=== PATIENT | male | born 1975 | race Caucasian/White ===

== ENCOUNTER 2017-01-13 13:02 | Observation (INO) | payer OTHER ==
[~2017-01-13] VITALS: Ht 188 cm; Wt 115.0 kg
[~2017-01-13 13:02] MED LIST: ADDERALL15 MG PO; AUGMENTIN25 MG/ML PO; COUMADIN,JANTOV10 MG PO; NEURONTIN600 MG PO; NEURONTIN800 MG PO; REMERON30 M2 PO; REMERON30 MG PO
[2017-01-13] MEDS ORDERED: WARFARIN SODIUM10 MG PO (13:25)
[2017-01-13] MEDS ORDERED: GABAPENTIN800 MG PO (13:27)
[2017-01-13 13:56] LABS: HEMATOCRIT 44.7 % (38.0-50.0); MCH 31.2 PG (29.0-34.0); MCHC 33.3 G/DL (30.0-36.0); MCV 93.7 FL (86-99); MEAN PLAT.VOLUME 9.7 uM^3 (9.0-12.4); PLATELET COUNT 246 K/uL (156-360); RBC DIS.WIDTH-CV 13.1 % (11.8-14.6); RBC DIS.WIDTH-SD 45.3 % (39-53); RED BLOOD COUNT 4.77 M/uL (4.00-5.50); WHITE BLOOD COUNT 9.2 K/uL (4.1-10.2)
[2017-01-13 14:08] LABS: D-DIMER ELISA 0.21 mg/L FEU (< 0.57); INTER. NORMALIZED RATIO 3.6; PROTHROMBIN TIME 37.7 (9.2-11.2); PTT 41.5 (25-32)
[2017-01-13 14:12] LABS: CHLORIDE 109 mEq/L (99-109); POTASSIUM 4.6 mEq/L (3.7-5.4); SODIUM 139 mEq/L (136-147)
[2017-01-13 14:14] LABS: GLUCOSE 93 mg/dL (70-99)
[2017-01-13 14:16] LABS: ANION GAP 9 MEQ/L (2-14); TOTAL BILIRUBIN 0.3 mg/dL (0.0-1.0)
[2017-01-13 14:18] LABS: ALKALINE PHOSPHATASE 81 IU/L (3-129); GFR ESTIMATE (CALCULATED) > 59 mL/min/
[2017-01-13 14:19] LABS: UREA NITROGEN (BUN) 17 mg/dL (9-23)
[2017-01-13] MEDS ORDERED: PRISTIQ50 MG PO (18:42)
[2017-01-13] MEDS ORDERED: WARFARIN SODIU7.5 MG PO (18:42)
[2017-01-13] MEDS ORDERED: NUCYNTA50 MG PO (18:43)
[2017-01-13] MEDS ORDERED: QUETIAPINE FUM100 MG PO (18:43)
[2017-01-13 20:19] VITALS: BP 126/84
[2017-01-13 23:17] VITALS: BP 128/81
[2017-01-13 23:50] LABS: METH RESISTANT S AUREUS PCR NEGATIVE (NEGATIVE)
[2017-01-13 23:53] LABS: PROBE CHECK PASS; SPECIMEN PROCESSING CONTROL PASS
[2017-01-14 03:20] VITALS: BP 110/70
[2017-01-14 07:36] LABS: PTT 37.4 (25-32)
[2017-01-14 08:02] LABS: INTER. NORMALIZED RATIO 3.2; PROTHROMBIN TIME 33.5 (9.2-11.2)
[2017-01-14 10:23] VITALS: BP 121/77
[2017-01-14 15:40] VITALS: BP 150/79
[2017-01-14] MEDS ORDERED: LO-DOSE ASPIRIN81 M2 PO (18:35)
[2017-01-14 18:49] VITALS: BP 139/81
[2017-01-14] MEDS ORDERED: NUCYNTA50 MG PO (18:49)
== END 2017-01-14 21:05 | disposition home or self-care (01) ==
LOC: EME 13:02 → EDOF 17:38 → 5WEST 20:10
PROVIDERS: Internal Medicine Nephrology; Nurse Practitioner Family
DX: I82.412 Acute embolism and thrombosis of left femoral vein (principal); I82.432 Acute embolism and thrombosis of left popliteal vein; I82.492 Acute embolism and thrombosis of other specified deep vein of left lower extremity; D68.61 Antiphospholipid syndrome; Z86.711 Personal history of pulmonary embolism; F41.9 Anxiety disorder, unspecified; F32.9 Major depressive disorder, single episode, unspecified; F17.200 Nicotine dependence, unspecified, uncomplicated
CPT/HCPCS: 70450; 71275; 80053; 85027; 85379; 85610; 85730; 87641; 93971; 99281; 99284; G0378; J7030